=== PATIENT | male | born 1990 | race Caucasian/White ===

== ENCOUNTER 2019-01-06 12:40 | Emergency (ER) | payer OTHER ==
[~2019-01-06] VITALS: Ht 172.7 cm; Wt 126.1 kg
[2019-01-06 13:03] VITALS: Ht 172.7 cm; Wt 126.1 kg
[2019-01-06 15:49] VITALS: BP 148/84
== END 2019-01-06 15:49 | disposition home or self-care (01) ==
LOC: ED 12:40
DX: M79.622 Pain in left upper arm (principal); E66.9 Obesity, unspecified

== ENCOUNTER 2019-01-09 07:17 | Emergency (ER) | payer OTHER ==
[~2019-01-09] VITALS: Ht 172.7 cm; Wt 127.0 kg
[2019-01-09 07:31] VITALS: BP 146/84; Ht 172.7 cm; Wt 127.0 kg
== END 2019-01-09 09:28 | disposition home or self-care (01) ==
LOC: ED 07:17
DX: L02.412 Cutaneous abscess of left axilla (principal)
CPT/HCPCS: J2001

== ENCOUNTER 2019-01-13 07:05 | Emergency (ER) | payer OTHER ==
[~2019-01-13] VITALS: Ht 170.2 cm; Wt 129.7 kg
[2019-01-13 07:06] VITALS: BP 154/99; Ht 170.2 cm; Wt 129.7 kg
== END 2019-01-13 07:45 | disposition home or self-care (01) ==
LOC: ED 07:05
DX: L02.412 Cutaneous abscess of left axilla (principal)

== ENCOUNTER 2019-10-29 10:01 | Emergency (ER) | payer OTHER ==
[~2019-10-29] VITALS: Ht 170.2 cm; Wt 133.8 kg
[2019-10-29 10:20] VITALS: Ht 170.2 cm; Wt 133.8 kg
[2019-10-29 11:09] VITALS: BP 148/79
== END 2019-10-29 11:09 | disposition home or self-care (01) ==
LOC: ED 10:01
DX: S29.012A Strain of muscle and tendon of back wall of thorax, initial encounter (principal); X58.XXXA Exposure to other specified factors, initial encounter; Y93.89 Activity, other specified; Y92.89 Other specified places as the place of occurrence of the external cause; Y99.8 Other external cause status

== ENCOUNTER 2019-12-03 11:21 | Emergency (ER) | payer OTHER ==
[~2019-12-03] VITALS: Ht 172.7 cm; Wt 132.0 kg
[2019-12-03 11:24] VITALS: Ht 172.7 cm; Wt 132.0 kg
[2019-12-03 12:33] VITALS: BP 140/75
== END 2019-12-03 12:33 | disposition home or self-care (01) ==
LOC: ED 11:21
DX: J06.9 Acute upper respiratory infection, unspecified (principal)